=== PATIENT | female | born 1935 | race Two or more races ===

== ENCOUNTER 2019-06-30 12:05 | Emergency (ER) | payer OTHER ==
[~2019-06-30] VITALS: Ht 157.5 cm; Wt 91.6 kg
== END 2019-06-30 17:48 | disposition home or self-care (01) ==
LOC: ER 12:05
DX: K57.31 Diverticulosis of large intestine without perforation or abscess with bleeding (principal); I48.91 Unspecified atrial fibrillation

== ENCOUNTER 2019-11-19 17:53 | Emergency (ER) | payer OTHER ==
[~2019-11-19] VITALS: Ht 154.9 cm; Wt 65.8 kg
== END 2019-11-19 21:56 | disposition home or self-care (01) ==
LOC: ER 17:53
DX: B34.9 Viral infection, unspecified (principal); R06.02 Shortness of breath